=== PATIENT | male | born 1955 | race Caucasian/White ===

== ENCOUNTER 2020-10-08 05:40 | Day surgery (SDC) | payer MEDICARE, OTHER ==
[2020-10-06 09:35] LABS: COVID AG,FIA SOURCE NASOPHARYNGEAL
[2020-10-06 09:39] LABS: BASOPHILS % (AUTO) 1.1 % (0.0-2.0); EOSINOPHILS % (AUTO) 1.1 % (1.0-6.0); HEMATOCRIT 46.3 % (41-53); HEMOGLOBIN 15.3 g/dL (13.5-17.5); LYMPHOCYTES # (AUTO) 1.7 K/uL (1.0-4.8); LYMPHOCYTES % (AUTO) 22.1 % (22.0-44.0); MEAN CORPUSCULAR HEMOGLOBIN 29.7 pg (26.0-34.0); MEAN CORPUSCULAR VOLUME 90 fL (80-100); MONOCYTES # (AUTO) 0.4 K/uL (0.1-1.0); MONOCYTES % (AUTO) 5.5 % (2.0-9.0); NEUTROPHILS # (AUTO) 5.4 K/uL (1.8-7.7); NEUTROPHILS % (AUTO) 70.2 % (40.0-70.0); PLATELET COUNT (AUTO) 230 K/uL (150-450); RED BLOOD CELL COUNT(AUTO) 5.14 MIL/uL (4.50-5.90); RED CELL DISTRIBUTION WIDTH 13.4 % (11.5-14.5)
[2020-10-06 09:55] LABS: ANION GAP 4 mmol/L (8-16); CALCIUM, TOTAL 9.5 mg/dL (8.8-10.5); CARBON DIOXIDE 29 mmol/L (22-29); CHLORIDE 105 mmol/L (98-107); GLOMERULAR FILTR. RATE CALC > 60 mL/min (>60); GLUCOSE,RANDOM 152 mg/dL (70-110); POTASSIUM 4.4 mmol/L (3.5-5.1); SODIUM SERUM 138 mmol/L (136-145); UREA NITROGEN, BLOOD 12 mg/dL (7-18)
[2020-10-06 10:00] LABS: PROTHROMBIN TIME 10.6 SEC (9.4-11.6)
[~2020-10-08] VITALS: Ht 162.6 cm; Wt 77.7 kg
[~2020-10-08 05:40] MED LIST: AMLO-258 PO; METF-960 PO; RINGERS SOLUTION,LACTATED 1,000 ML IV ONE
[2020-10-08] MEDS ORDERED: FentaNYL CITRATE PF 100 MCG/2 ML VIAL IVP ONE (05:41)
[2020-10-08] MEDS ORDERED: KETAMINE HCL 50 MG/ML 10 ML VIAL IVP ONE (05:41)
[2020-10-08] MEDS ORDERED: PROPOFOL 1% 20 ML VIAL IVP ONE (05:41)
[2020-10-08] MEDS ORDERED: LIDOCAINE/PF 2% 5 ML VIAL IM ONE (05:41)
[2020-10-08] MEDS ORDERED: RINGERS SOLUTION,LACTATED 1,000 ML IV ONE (06:00)
[2020-10-08] MEDS ORDERED: PERCT PO (06:20)
[2020-10-08] MEDS ORDERED: CEPH500C3 PO (06:20)
[2020-10-08 06:46] LABS: GLUCOMETER DEV NAME(LOC) SDS.; GLUCOSE,POINT OF CARE 164 MG/DL (70-110)
[2020-10-08] MEDS ORDERED: LIDOCAINE/PF 1% 30 ML VIAL ONE (06:56)
[2020-10-08] MEDS ORDERED: BUPIVACAINE HCL/PF 0.25% 30 ML VIAL ONE (06:56)
[2020-10-08] MEDS ORDERED: SODIUM CL IRRIG SOLN BAG 0 ML IRRIG ONE (06:57)
[2020-10-08] MEDS ORDERED: BACITRACIN 50,000 UNITS/VIAL ONE (06:57)
[2020-10-08] MEDS ORDERED: PROPOFOL 1000 MG/ISO-OSM 100 ML ONE (07:10)
[2020-10-08] MEDS ORDERED: FentaNYL CITRATE PF 100 MCG/2 ML VIAL IVP PRN (08:30)
[2020-10-08] MEDS ORDERED: HYDROmorphone 2 MG/ML VIAL IVP PRN (08:30)
[2020-10-08] MEDS ORDERED: MEPERIDINE-PF 25 MG/ML VIAL IVP PRN (08:30)
[2020-10-08] MEDS ORDERED: OXYGEN THERAPY IH SCH (20:00)
== END 2020-10-08 09:50 | disposition home or self-care (01) ==
LOC: SURGERY 05:40
PROVIDERS: ATTEND Podiatrist Primary Podiatric Medicine
DX: M67.472 Ganglion, left ankle and foot (principal); I10 Essential (primary) hypertension; E78.00 Pure hypercholesterolemia, unspecified; E11.9 Type 2 diabetes mellitus without complications; E78.5 Hyperlipidemia, unspecified; Z79.899 Other long term (current) drug therapy; Z98.890 Other specified postprocedural states; Z79.01 Long term (current) use of anticoagulants
CPT/HCPCS: 27630; 36415; 80048; 82962; 85025; 85610; 85730; 87426; 93005; C9803; J0690; J2704 ×2; J3010; J3490 ×4; J7120